=== PATIENT | female | born 1970 | race Caucasian/White ===

== ENCOUNTER 2017-09-02 15:50 | Emergency (ER) | payer MEDICARE, MEDICAID ==
[2017-09-02] MEDS ORDERED: Sodium Chloride 0.9% 1,000 ML IV ONE ×2 (16:02→18:31)
--- NOTE | 2017-09-02 16:14 | EDM.PDOC ---
ED HPI GENERAL MEDICAL PROBLEM - General Stated Complaint: FALL Time Seen by Provider: 09/02/17 15:50 Source of Information: Reports: Patient, EMS History Limitations: Reports: Altered Mental Status, Physical Impairment - History of Present Illness INITIAL COMMENTS - FREE TEXT/NARRATIVE: 47 years old w f came by ems to the ed after she was found at the floor in her home. As per EMS, the living situation was very poor where the pt was found and totally disorganized, nearly unbearable smell in the room where the pt was found. Pt stated, she fell a few days ago and was not able to get up by herself. Pt is a poor historian, no family was present. Pt was not able to turn to the side by herself due to weakness, she was in extremely poor hygiene. The nurses had to wear masks to tolerate the smell and order to clean the patient up. She had a broken down skin at her buttock and a large necrotic skin area at her left prox thigh lat aspect. Pt denied C/P, SOB. She c/p bilat hip pain and weakness. BP was 160/60 pulse 109 temp 99.1 Pulse ox was 99% on RA. Onset Date: 08/31/17 Onset Time: 06:00 Duration: Day(s):, Getting Worse Location: Reports: Lower Extremity, Left Quality: Reports: Ache, Burning, Dull, Pressure Severity: Moderate Improves with: Reports: Rest Worsens with: Reports: Movement Context: Reports: Other (fall, unable to get up) Associated Symptoms: Reports: Weakness both hips Pain Score (Numeric/FACES): 10 - Related Data Allergies Allergy/AdvReac Type Severity Reaction Status Date / Time No Known Allergies Allergy Verified 09/02/17 17:56 Home Meds: Home Meds . [Unable to Verify Home Med List] 09/02/17 [History] ED ROS GENERAL - Review of Systems Review Of Systems: Unable To Obtain ED EXAM, SKIN/RASH Exam: See Below Exam Limited By: Physical Impairment General Appearance: Alert, Mild Distress, Moderate Distress, Obese (morbid) Eye Exam: Bilateral Eye: Normal Inspection Ears: Normal External Exam Nose: Normal Inspection Throat/Mouth: Other (dry mucosal membrane) Head: Atraumatic, Normocephalic Neck: Normal Inspection, Supple, Non-Tender Respiratory/Chest: No Respiratory Distress, Lungs Clear, Normal Breath Sounds ( poor insp effort) Cardiovascular: Normal Peripheral Pulses, Regular Rate, Rhythm, No Edema, No JVD Peripheral Pulses: 1+: Radial (L), Radial (R) GI/Abdominal: Normal Bowel Sounds (Female) Exam: Deferred Rectal (Female) Exam: Deferred Back Exam: Normal Inspection Extremities: Redness (necrotic/gangrene left lat hip aerea 20X15 cm) Neurological: Alert, Oriented, CN II-XII Intact, Normal Cognition, Other ( unable to ambulate) Psychiatric: Depressed Mood, Flat Affect Skin: Decubitus (buttoc with broken down skin), Ecchymosis (left lower leg, left groin), Pallor, Rash, Wound/Incision Location, Skin: Lower Extremity, Left Characteristics: Erythematous, Necrotic (area over left hip and buttoc) Associated features: Induration, Inflammation Lymphatic: No Adenopathy EKG INTERPRETATION EKG Date: 09/02/17 Time: 17:55 Rhythm: NSR Rate (Beats/Min): 109 [place]: RAD-Right [place] Deviation P-Wave: Present QRS: Normal ST-T: Normal QT: Normal Comparison: NA - No Prior EKG Course - Vital Signs Text/Narrative:: 47 years old w f came by ems to the ed after she was found at the floor in her home. As per EMS, the living situation was very poor where the pt was found and totally disorganized, nearly unbearable smell in the room where the pt was found. Pt stated, she fell a few days ago and was not able to get up by herself. Pt is a poor historian, no family was present. Pt was not able to turn to the side by herself due to weakness, she was in extremely poor hygiene. The nurses had to wear masks to tolerate the smell and order to clean the patient up. She had a broken down skin at her buttock and a large necrotic skin area at her left prox thigh lat aspect. Pt denied C/P, SOB. She c/p bilat hip pain and weakness. BP was 160/60 pulse 109 temp 99.1 Pulse ox was 99% on RA. Pt stated she has NIDDM and does not remember when she took her last metformin PE: Morbid obese WF, pale, weak severely unkempt with a huge 20x15 cm necrotic skin at her left prox leg with cellulitis going from her left groin down to her left lower leg. Gait could not be tested because of her weakness Labs: WBC 16.7 HBG 16.2 HTC 42.3 Lactic acit 2.5 HA1C 8.0 BCx results are panding Imaging: Pelvis: NAD, official report is pending Impression: 1) Poor hygiene, 2) Cellulitis: left lower leg 3) Necrosis of skin area over the left hip (15x20 cm) 4) cellulitis of abd. wall, 5)morbid obesity, 6) Dehydration. 7) Poor dentition, 8) Unable to ambulate due to weakness 9) NIDDM 10) Noncompliant with meds Tx: washing up the patient, NS, Rocephin, Morphine for pain 5.30 pm Consultation: Dr. Cavazos, surgeon: Necrotic skin are needs skin flap and skin transfer etc. Transfer to [facility] 5.45 pm Consultation: , Hospitalist, [facility]: Accepted for transfer and Tx Reexam: Pt improved, not as pale as in the beginning and appeared more active. No family was present. Plan: transfer to [facility] per EMS Last Recorded V/S: Last Vital Signs Temp 37.6 C 09/02/17 18:43 Pulse 112 H 09/02/17 18:43 Resp 18 09/02/17 18:43 BP 153/69 H 09/02/17 18:43 Pulse Ox 99 09/02/17 18:43 - Orders/Labs/Meds Labs: Laboratory Tests 09/02/17 09/02/17 09/02/17 Range/Units 16:25 16:25 16:25 WBC 16.7 H (4.5-12.0) X10-3/uL RBC 5.36 H (3.23-5.20) x10(6)uL Hgb 16.2 H (11.5-15.5) g/dL Hct 47.7 (30.0-51.3) % MCV 89.0 (80-96) fL MCH 30.3 (27.7-33.6) pg MCHC 34.0 (32.2-35.4) g/dL RDW 13.5 (11.5-15.5) % Plt Count 471 H (125-369) X10(3)uL MPV 8.1 (7.4-10.4) fL Add Manual Diff Yes Neutrophils % (Manual) 82 (46-82) % Lymphocytes % (Manual) 8 L (13-37) % Monocytes % (Manual) 10 (4-12) % PT 11.2 H (8.7-11.1) INR 1.11 (0.89-1.13) Sodium 133 L (135-145) mmol/L Potassium 4.2 (3.5-5.3) mmol/L Chloride 98 L (100-110) mmol/L Carbon Dioxide 18 L (21-32) mmol/L BUN 21 H (7-18) mg/dL Creatinine 0.8 (0.55-1.02) mg/dL Est Cr Clr Drug Dosing TNP Estimated GFR (MDRD) > 60 (>60) BUN/Creatinine Ratio 26.3 H (9-20) Glucose 225 H (80-116) mg/dL Hemoglobin A1c (4.5-6.2) % Lactic Acid (0.4-2.2) mmol/L Calcium 9.2 (8.6-10.2) mg/dL Creatine Kinase 888 H* (60-160) IU/L NT-Pro-B Natriuret Pep (<=125) pg/mL 09/02/17 09/02/17 09/02/17 Range/Units 16:25 16:25 16:25 WBC (4.5-12.0) X10-3/uL RBC (3.23-5.20) x10(6)uL Hgb (11.5-15.5) g/dL Hct (30.0-51.3) % MCV (80-96) fL MCH (27.7-33.6) pg MCHC (32.2-35.4) g/dL RDW (11.5-15.5) % Plt Count (125-369) X10(3)uL MPV (7.4-10.4) fL Add Manual Diff Neutrophils % (Manual) (46-82) % Lymphocytes % (Manual) (13-37) % Monocytes % (Manual) (4-12) % PT (8.7-11.1) INR (0.89-1.13) Sodium (135-145) mmol/L Potassium (3.5-5.3) mmol/L Chloride (100-110) mmol/L Carbon Dioxide (21-32) mmol/L BUN (7-18) mg/dL Creatinine (0.55-1.02) mg/dL Est Cr Clr Drug Dosing Estimated GFR (MDRD) (>60) BUN/Creatinine Ratio (9-20) Glucose (80-116) mg/dL Hemoglobin A1c 8.0 H (4.5-6.2) % Lactic Acid 2.5 H (0.4-2.2) mmol/L Calcium (8.6-10.2) mg/dL Creatine Kinase (60-160) IU/L NT-Pro-B Natriuret Pep 37 (<=125) pg/mL Meds: Medications Discontinued Medications Generic Name Dose Route Start Last Admin Trade Name Ana PRN Reason Stop Dose Admin Sodium Chloride 1,000 mls @ 999 mls/hr 09/02/17 16:02 09/02/17 16:10 Normal Saline IV 09/02/17 17:02 999 mls/hr .BOLUS ONE Administration Ceftriaxone Sodium 1,000 mg/ 50 mls @ 100 mls/hr 09/02/17 16:57 09/02/17 17: 39 Sodium Chloride IV 09/02/17 17:26 100 mls/hr ONETIME ONE Administration Sodium Chloride 1,000 mls @ 999 mls/hr 09/02/17 18:31 09/02/17 18:36 Normal Saline IV 09/02/17 19:31 999 mls/hr .BOLUS ONE Administration Morphine Sulfate 2 mg 09/02/17 18:44 09/02/17 18:47 Morphine IVPUSH 09/02/17 18:45 2 mg ONETIME ONE Administration Departure - Departure Time of Disposition: 19:00 Disposition: DC/Tfer to Acute Hospital 02 Condition: Fair Clinical Impression: Gangrenous necrosis of skin - Discharge Information Referrals: Octavio Hernandez MD [Primary Care Provider] - Forms: ED Department Discharge
[2017-09-02] MEDS ORDERED: cefTRIAXone 1,000 MG in Sodium Chloride 0.9% 50 ML IV ONE (16:57)
[2017-09-02] MEDS ORDERED: Morphine 2 MG/ML Syringe IVPUSH ONE (18:44)
--- NOTE | 2017-09-09 12:17 | CR ---
INDICATION: Fall. PELVIS: Three images of the pelvis were obtained in frontal projection and revealed the hip joints to appear fairly intact with some degenerative changes and, on the right, slight loss of cranial lateral joint space at the right hip. Degenerative changes and disk disease are suggested L5-S1. Sacroiliac joints appear to be intact. A definite fracture or dislocation was not identified. IMPRESSION: No acute fracture or dislocation. MTDD
== END 2017-09-02 18:55 ==
LOC: FB.ED 15:50
DX: E11.52 Type 2 diabetes mellitus with diabetic peripheral angiopathy with gangrene (principal); I96 Gangrene, not elsewhere classified; L03.116 Cellulitis of left lower limb; L03.311 Cellulitis of abdominal wall; E66.01 Morbid (severe) obesity due to excess calories; E86.0 Dehydration; Z91.14 Patient's other noncompliance with medication regimen
CPT/HCPCS: 36415; 72170; 80048; 82550; 83036; 83605; 83880; 85025; 85610; 87040; 93005; 96361; 96365; 96375; 99284; J0696; J2270; J7040; J7050; 99285